=== PATIENT | female | born 1970 | race Caucasian/White ===

== ENCOUNTER 2016-05-25 09:59 | Emergency (ER) | payer BC ==
[2010-07-02 13:12] VITALS: BMI 31.8
[2016-05-25 11:33] LABS: BASOPHILS 0.2 % (0.0-2.0); EOSINOPHILS 0.5 % (0-7); HEMOGLOBIN 13.2 g/dL (12-16); LYMPHOCYTES 24.4 % (15-50); MCH 31.1 pg (26.0-34.0); MCV 94.3 fL (80.0-100.0); MONOCYTES 7.2 % (2-11); NEUTROPHILS 67.7 % (40-80); PLATELET COUNT 228 10x3/uL (130-400); RBC 4.24 10x6/uL (4.00-5.40); RDW 12.6 % (11.5-14.5)
[2016-05-25 11:34] LABS: ALBUMIN 3.9 g/dL (3.4-5.0); ALKALINE PHOSPHATASE 72 U/L (46-116); ALT (SGPT) 29 U/L (10-68); BILIRUBIN - TOTAL 0.85 mg/dL (0.2-1.3); CALC OSMOLALITY 277 mosm/kg (275-300); CALCIUM 9.5 mg/dL (8.5-10.1); CHLORIDE - SERUM 103 mmol/L (98-107); CREATININE - SERUM 0.7 mg/dL (0.6-1.3); GLUCOSE 102 mg/dL (74-106); POTASSIUM - SERUM 3.7 mmol/L (3.5-5.1); PROTEIN - SERUM 7.2 g/dL (6.4-8.2); SODIUM 140 mmol/L (136-145); UREA NITROGEN 10 mg/dL (7-18); eGFR NON AFRICAN AMERICAN > 90 mL/min (90-120)
[2016-05-25 11:44] LABS: C-REACTIVE PROTEIN 0.3 mg/dL (0.0-0.9); CREATINE KINASE 200 UL (21-215); PRO BNP 83 pg/mL (0-125); TROPONIN-I < 0.017 ng/mL (0.000-0.060)
[2016-05-25 13:24] LABS: APPEARANCE CLEAR (CLEAR); BILIRUBIN NEGATIVE (NEGATIVE); COLOR YELLOW (YELLOW); GLUCOSE NEGATIVE (NEGATIVE); LEUKOCYTE ESTERASE NEGATIVE (NEGATIVE); NITRITE NEGATIVE (NEGATIVE); PROTEIN NEGATIVE (NEGATIVE); SPECIFIC GRAVITY 1.015 (1.005-1.020); UROBILINOGEN NORMAL (NORMAL)
[2016-05-25 13:25] LABS: KETONE MODERATE mg/dL (NEGATIVE)
[2016-07-02 01:29] VITALS: BMI 30.9
== END 2016-05-25 13:57 | disposition home or self-care (01) ==
LOC: D.ER 09:59
PROVIDERS: Nurse Practitioner Family
DX: M62.838 Other muscle spasm (principal); I34.1 Nonrheumatic mitral (valve) prolapse

== ENCOUNTER 2016-07-01 21:46 | Observation (INO) | payer BC ==
[~2016-07-01] VITALS: Ht 162.6 cm; Wt 83.3 kg
[2016-07-01 23:47] LABS: BASOPHILS 0.2 % (0.0-2.0); EOSINOPHILS 1.8 % (0-7); HEMATOCRIT 38.5 % (36.0-48.0); HEMOGLOBIN 12.7 g/dL (12-16); IMMATURE GRANULOCYTES 0.2 % (0-5); LYMPHOCYTES 30.2 % (15-50); MCV 93.9 fL (80.0-100.0); MEAN PLATELET VOLUME 9.8 fL (7.4-10.4); MONOCYTES 6.2 % (2-11); NEUTROPHILS 61.4 % (40-80); PLATELET COUNT 212 10x3/uL (130-400); RDW 12.3 % (11.5-14.5); WBC 4.3 10x3/uL (4.8-10.8)
[2016-07-02 00:01] LABS: ALBUMIN 3.7 g/dL (3.4-5.0); ALKALINE PHOSPHATASE 75 U/L (46-116); ALT (SGPT) 29 U/L (10-68); BILIRUBIN - TOTAL 0.34 mg/dL (0.2-1.3); CALC OSMOLALITY 289 mosm/kg (275-300); CALCIUM 8.6 mg/dL (8.5-10.1); CARBON DIOXIDE 25.9 mmol/L (21.0-32.0); CHLORIDE - SERUM 109 mmol/L (98-107); CREATININE - SERUM 0.6 mg/dL (0.6-1.3); GLUCOSE 90 mg/dL (74-106); POTASSIUM - SERUM 3.6 mmol/L (3.5-5.1); SODIUM 146 mmol/L (136-145); UREA NITROGEN 9 mg/dL (7-18); eGFR NON AFRICAN AMERICAN > 90 mL/min (90-120)
[2016-07-02 00:13] LABS: CHOL - HDL RATIO 2.8 ratio (2.3-4.1); CHOLESTEROL, TOTAL 153 mg/dL (0-200); CKMB 2.1 U/L (0.0-3.6); CREATINE KINASE 171 UL (21-215); HDL CHOLESTEROL 54 mg/dL (32-96); LDL CHOLESTEROL 76 mg/dL (0-100); LDL-HDL RATIO 1.4 ratio (1.5-3.5); TRIGLYCERIDE 118 mg/dL (30-200)
[2016-07-02 00:30] LABS: TROPONIN-I < 0.017 ng/mL (0.000-0.060)
[2016-07-02 01:29] VITALS: Ht 162.6 cm; Wt 83.3 kg
--- NOTE | 2016-07-02 01:45 | NUR ---
ADMIT TO ROOM 2115 AT 0105 FROM ER. ALERT/ORIENTED. ACCOMPANIED BY SPOUSE AND GRANDCHILD. TELEMETRY STARTED, SR 70'S. ADMISSION HISTORY AND ASSESSMENT COMPLETED. HOME MEDS REVIEWED. ORIENTED TO ROOM, CALL LIGHT AND PLAN OF CARE. NPO UNTIL SEEN BY IN AM. O2 @ 2L/NC WITH NONLABORED RESPIRATIONS. PIV TO LFA SALINE LOCKED.
--- NOTE | 2016-07-02 02:55 | NUR ---
PT RESTING IN BED. AT BEDSIDE. NO DISTRESS. SR PER TELEMETRY.
[2016-07-02 04:25] VITALS: BP 109/71
[2016-07-02 06:08] LABS: CREATINE KINASE 134 UL (21-215)
[2016-07-02 06:15] LABS: TROPONIN-I < 0.017 ng/mL (0.000-0.060)
[2016-07-02 07:00] VITALS: BP 119/61
[2016-07-02] MEDS ORDERED: BAYER CHEWABLE81 MG PO (07:11)
--- NOTE | 2016-07-02 07:38 | NUR ---
RECEIVED PT IN BED AAOX4 RESP UNLABORED DENIES ANY NEEDS OR DISCOMFORT NAD NOTED
[2016-07-02 12:00] VITALS: BP 140/56
[2016-07-02 12:54] LABS: CKMB 1.2 U/L (0.0-3.6); CREATINE KINASE 117 UL (21-215)
[2016-07-02 12:56] LABS: TROPONIN-I < 0.017 ng/mL (0.000-0.060)
--- NOTE | 2016-07-02 14:55 | NUR ---
PT C/O CHEST PAIN 10/[address] LÓPEZ PAGED NEW ORDERS RECEIVED VS 144/71 RT ARM PULSE 84 RESP 18
--- NOTE | 2016-07-02 15:00 | NUR ---
NTG SL NTG GIVEN FOR C/O CHEST PAIN
--- NOTE | 2016-07-02 15:05 | NUR ---
NTG 0.4 MG GIVEN SL FOR C/O CHEST PAIN VS B/P 126/74 P 71 RESP 16
--- NOTE | 2016-07-02 15:26 | NUR ---
DILAUDID 0.5 MG GIVEN SIVP FOR C/O CHEST PAIN 10/17
--- NOTE | 2016-07-02 15:35 | NUR ---
PT RESTING QUIETLY DENIES ANY PAIN OR DISCOMFORT AT THIS TIME
[2016-07-02 16:00] VITALS: BP 130/72
[2016-07-02 18:58] LABS: CKMB 0.9 U/L (0.0-3.6); CREATINE KINASE 111 UL (21-215); TROPONIN-I < 0.017 ng/mL (0.000-0.060)
--- NOTE | 2016-07-02 19:15 | NUR ---
INITIAL ROUNDS MADE. PT SITTING UP IN BED WITH FAMILY IN ROOM. CALL LIGHT IN REACH. WILL CONT TO MONITOR.
[2016-07-02 20:47] VITALS: BP 127/61
--- NOTE | 2016-07-02 23:25 | NUR ---
ACCOUNT ASSISTANT AT BEDSIDE FOR VS. NEEDS ADDRESSED, CALL LIGHT IN REACH. WILL CONT TO MONITOR.
[2016-07-03 00:24] VITALS: BP 109/50
[2016-07-03 04:39] VITALS: BP 108/51
--- NOTE | 2016-07-03 05:15 | NUR ---
NO CHANGES IN ASSESSMENT. CALL LIGHT IN REACH. DENIES NEEDS. CONT TO MONITOR.
[2016-07-03 05:50] LABS: BASOPHILS 0.2 % (0.0-2.0); EOSINOPHILS 1.7 % (0-7); HEMATOCRIT 40.4 % (36.0-48.0); IMMATURE GRANULOCYTES 0.2 % (0-5); LYMPHOCYTES 25.5 % (15-50); MCH 30.7 pg (26.0-34.0); MCHC 32.2 g/dL (31.0-37.0); MCV 95.5 fL (80.0-100.0); MONOCYTES 5.7 % (2-11); NEUTROPHILS 66.7 % (40-80); PLATELET COUNT 202 10x3/uL (130-400); RBC 4.23 10x6/uL (4.00-5.40); RDW 12.5 % (11.5-14.5)
[2016-07-03 06:10] LABS: CALC OSMOLALITY 285 mosm/kg (275-300); CALCIUM 8.6 mg/dL (8.5-10.1); CARBON DIOXIDE 26.4 mmol/L (21.0-32.0); CHLORIDE - SERUM 107 mmol/L (98-107); CREATININE - SERUM 0.6 mg/dL (0.6-1.3); GLUCOSE 90 mg/dL (74-106); POTASSIUM - SERUM 3.7 mmol/L (3.5-5.1); SODIUM 143 mmol/L (136-145); eGFR NON AFRICAN AMERICAN > 90 mL/min (90-120)
[2016-07-03 06:11] LABS: UREA NITROGEN 15 mg/dL (7-18)
--- NOTE | 2016-07-03 07:30 | NUR ---
RECEIVED PT IN BED AAOX4 RESP UNLABORED DENIES ANY NEEDS OR DISCOMFORT NAD NOTED
--- NOTE | 2016-07-03 11:31 | NUR ---
CM MET WITH PATIENT REGARDING D/C NEEDS. PATIENT WAS DRESSED AND READY FOR DISCHARGE. SPOUSE WAS AT BEDSIDE TO DRIVE PATIENT HOME. PATIENT REFUSES HOME HEALTH OR ANY OTHER NEEDS FOR DISCHARGE TODAY.
--- NOTE | 2016-07-03 13:15 | NUR ---
REVIEWED DISCHARGE INSTRUCTIONS WITH PT AND BOTH STATE UNDERSTANDING COPY GIVEN TO PT SALINE LOCK DCD TO LFA WITH 20 GA IV CATHETER TIP INTACT PT DISCHARGED HOME IN STABLE CONDITION LEFT UNIT VIA W/C IN STABLE CONDITION WITH ALL PERSONAL BELONGINGS
--- NOTE | 2016-07-08 14:54 | EC ---
PATIENT:WAQAR WEBB DATE OF SERVICE: 07/02/16 SEX: F MEDICAL RECORD: [id number] DATE OF : 68 LOCATION:[address]. D.211 AGE OF PATIENT: 46 ADMISSION DATE: 07/02/16 REFERRING PHYSICIAN: INTERPRETING PHYSICIAN: PHILIP BOSS M.D. ECHOCARDIOGRAM REPORT ECHO CHARGES 4 ECHO COMPLETE CLINICAL DIAGNOSIS: CHEST PAIN ECHOCARDIOGRAPHIC MEASUREMENTS (adult normal given) AC root (d.<3.7cm) 3.3 LV Septum d (<1.2 cm> 1.2 Valve Excursion 2.2 LV Septum (systole) 1.8 Left Atria (s.<4.0cm> 3.6 LVPW d(<1.2cm) 1.5 RV (d.<2.3cm) 3.3 LVPW (sytole) 1.8 LV diastole(<5.6CM) 4.5 MV E-F(>70mm/sec) LV systole 2.6 LVOT Diameter 2.1 MV exc.(>10mm) 1.7 Est.ejection fraction (50-75%) Pericardial Effusion N DOPPLER: LVIT A 77.0 E 90.0 LA RVSP 31 LVOT 102 AOP1/2T Asc. Ao 150 RVOT 66 RA PA 106 AV Gradient Peak 9.00 AV Mean 64.64 AV Area 2.0 MV Gradient Peak 4.02 MV Mean 1.96 MV Area COMMENTS: Board Of Directors: Hattie DEVINE Supervisor [place]:2 Dr. Boss TAPE# PACS DATE OF SERVICE: 07/03/2016 REFERRING PHYSICIAN: Chetan Torres MD. INDICATION: Chest pain. DESCRIPTION: Left ventricle appears normal size and function. No wall motion abnormalities are noted. Estimated ejection fraction is ____. Mitral valve is structurally normal. There is trivial regurgitation seen. Left atrium is normal in size. The aortic valve is trileaflet. There is no stenosis or ECHOCARDIOGRAM REPORT [id number] WAQAR WEBB regurgitation seen. Right ventricle is normal size and function. Tricuspid valve is structurally normal. There is mild regurgitation noted. Right atrium is normal size. There is no pericardial effusion seen. IMPRESSION: 1. Normal left ventricular size and function, ejection fraction ____. 2. Trivial mitral regurgitation. 3. Mild tricuspid regurgitation. TRANSINT:[id number] Voice Confirmation ID: [id number] DOCUMENT ID: [id number] PHILIP BOSS M.D. at 1454 CC: [id number] DICTATION DATE: 07/03/16 1344 FILM SORTER: 07/04/16 0042 DIS IN 07/03/16 [facility] [address] [id number]
== END 2016-07-03 13:15 | disposition home or self-care (01) ==
LOC: D.ER 21:46 → D.M2 07-02 00:48 → OBSVTIME 07-02 00:48 → D.M2 07-02 00:48
PROVIDERS: Family Medicine; ADMIT Family Medicine
DX: R07.89 Other chest pain (principal); R06.00 Dyspnea, unspecified; Z82.49 Family history of ischemic heart disease and other diseases of the circulatory system